=== PATIENT | female | born 1985 | race Caucasian/White ===

== ENCOUNTER 2025-04-15 12:08 | Emergency (ER) | payer OTHER, SELFPAY ==
--- OUTSIDE RECORDS SUMMARY | 2025-04-15 12:11 | XMS_ITS | Clinical Summary ---
Author Organization [facility] Address [address] [place] [address] Care Team Providers Care Forming Machine Adjuster Name Role Phone Perez Bermudez MD Primary Care Provider [phone] Allergies No known active allergies Medications ondansetron (ZOFRAN) 4 MG tablet Take 1 tablet (4 mg total) by mouth every 8 (eight) hours as needed for Nausea. 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 Gender Identity Not on file Sexual Orientation Not on file Last Filed Vital Signs Vital Sign Reading Time Taken Comments Blood Pressure 121/75 12/01/2024 12:30 AM CDT Pulse 94 12/01/2024 12:30 AM CDT Temperature 36.2 C (97.1 F) 12/01/2024 12:30 AM CDT Respiratory Rate 16 12/01/2024 12:30 AM CDT Oxygen Saturation 98% 12/01/2024 12:30 AM CDT Inhaled Oxygen Concentration - - Weight 95.3 kg (210 lb) 11/30/2024 8:28 PM CDT Height 172.7 cm (5' 8) 11/30/2024 8:28 PM CDT Body Mass Index 31.93 11/30/2024 8:28 PM CDT Plan of Treatment Health Maintenance Due Date Last Done Comments Cervical Cancer Screening Pa p Smear (Age 30 to 64) Every 3 Years 1984 Annual Physical 02/06/1987 Hepatitis C 02/06/2002 DTaP, Tdap and Td Vaccines ( 1 - Tdap) 02/06/2003 Hepatitis B Vaccines (1 of 3 - 19+ 3-dose series) 02/06/2003 HPV Vaccines (1 - 3-dose SCD M series) 02/06/2011 Cervical Cancer Screening Pa p with HPV Testing (Age 30 to 64) Every 5 Years 02/06/2014 Cervical Cancer Screening wi th HPV 02/06/2014 Mammogram Screening 2024 COVID-19 Vaccine (3 - 2023-2 5 season) 2024 12/06/2020, 11/15/2020 Meningococcal B Vaccine Aged Out No l onger eligible based on patient's age to complete this topic Meningococcal Vaccine Aged Out No buster ying eligible based on patient's age to complete this topic Pneumococcal Vaccine: Pediatrics (0 to 5 Years) and At-Risk Patients (6 to 49 Years) Aged Out No longer eligible b ased on patient's age to complete this topic RSV Immunizations Under 20 Months Aged Out No longer eligible b ased on patient's age to complete this topic Insurance [employer] Care Teams Forming Machine Adjuster Relationship Specialty Start Date End Date Perez Bermudez MD [address] [place] [address] PCP - General FAMILY PRACTICE 09/25/20
[2025-04-15 12:17] VITALS: PULSE 92; RESP 18; TEMP 36.8; O2SAT 100
--- NOTE | 2025-04-15 12:31 | ED.URI ---
HPI - URI/Sore Throat General Chief Complaint: Upper Respiratory Infection Stated Complaint: sore throat Time Seen by Provider: 04/15/25 12:31 Source: patient Mode of arrival: ambulatory Limitations: no limitations History of Present Illness HPI Narrative: 40-year-old female presents with complaint of congestion, sore throat, postnasal drainage, bilateral ear pressure for the past 4-5 days. Sore throat initially hurt in the morning and in the evenings but now is constant. Recently home from [facility]. Patient leaving in 2 days to go to [place]. Does not want to be sick when she goes as her mother is immunocompromised. Reports history of recurrent tonsillitis. All systems reviewed and negative except as noted above. Related Data Home Medications ?Medication ?Instructions ?Recorded ?Confirmed ?Last Taken ?Type levonorgestrel (Mirena) 1 device intrauterine ONCE 06/08/23 12/30/24 Unknown History Allergies Allergy/AdvReac Type Severity Reaction Status Date / Time poison oak extract Allergy Mild RASH Verified 04/15/25 12:17 No Known Drug Allergies Allergy Unknown Unknown Verified 04/15/25 12:17 [facility] Past Medical History Medical History Anxiety and depression Vaginal discharge Encounter for insertion of mirena IUD Sexually transmissible disease Encounter for IUD removal 01/02/16 Mirena removal Encounter for IUD insertion 06/28/14 Mirena insertion Depression Abnormal Pap smear of cervix (~2003) 2004 - CX DYSPLASIA Avulsion fracture of distal fibula Wellness examination Pruritus Low back pain Memory difficulties Wellness examination Insomnia Cyst of hand Obesity (BMI 30.0-34.9) Surgical History Surgical History H/O gynecological procedure mirena IUD insertion 01/2023 H/O LEEP (~2003) History of carpal tunnel release (06/17/16) both hands History of cholecystectomy (~2008) Family History Family History Father Hypertension Mother Breast cancer Carcinosarcoma of body of uterus Social History Social History Smoking status: Never smoker Second hand tobacco smoke exposure: No Alcohol intake: current Alcohol use details: 5 per month Substance use: never Substance use type: does not use Living arrangements: other Additional living arrangements comments: Occupation/Education: occupation 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 There is no relevant family history pertinent to the presenting complaint. Exam Narrative: GENERAL: This is a well-nourished, well-developed patient, in no apparent distress. HEAD: normocephalic, atraumatic. EYES: PERRL. Sclera clear/white. Vision is grossly intact. EARS: External ears normal, auditory canals clear and without drainage, Fluid with mild erythema and bulging to left TM. Right TM is normal. No perforation bilaterally. Hearing grossly intact. NOSE: External nose normal with Clear nasal drainage with erythema to nares. THROAT: Mucous membranes moist, Mild erythema postnasal drainage. No swelling or exudates. NECK: Neck supple, non-tender without lymphadenopathy, masses or thyromegaly. CARDIOVASCULAR: Regular rate and rhythm without murmurs, gallops, or rubs. RESPIRATORY: Clear to auscultation. Breath sounds equal bilaterally. No wheezes, rales, or rhonchi. SKIN: warm, Dry, intact with no suspicious lesions or rash, good texture and turgor. NEURO: awake, alert, and oriented to person, place and time. There were no obvious focal neurologic abnormalities. EXTREMITIES: No joint tenderness, effusion, or edema noted. Course Course Level of Care: Express Care Visit Vital Signs Vital signs: Vital Signs Temperature 36.8 C 04/15/25 12:17 Pulse Rate 92 04/15/25 12:17 Respiratory Rate 18 04/15/25 12:17 Pulse Oximetry 100 04/15/25 12:17 Oxygen Delivery Room Air 04/15/25 12:17 Temperature 36.8 C 04/15/25 12:17 Pulse Rate 92 04/15/25 12:17 Respiratory Rate 18 04/15/25 12:17 Pulse Oximetry 100 04/15/25 12:17 Oxygen Delivery Room Air 04/15/25 12:17 Reviewed MDM - URI/Sore Throat MDM Narrative Medical decision making narrative: strep test negative. Strep culture ordered. Will treat patient with amoxicillin for left serous otitis. Patient agrees with plan of care. Discharge Plan Discharge Clinical Impression: Acute serous otitis media of left ear, Acute sinusitis Patient Disposition: Home Condition: Stable Instructions: Antibiotic Form, Fluid In The Ear (Serous Otitis Media) (ED) Additional Instructions: Your strep test was negative today. take antibiotic as prescribed until gone. Purchase [id number] Zyrtec D and take as directed on packaging. This medication is found by the pharmacy counter. Drink at least 64 oz water a day. See your doctor if symptoms are not improving. Patient Language: Syriac Prescriptions: New amoxicillin 875 mg tablet 875 mg PO Q12H 10 Days Qty: 20 0RF No Action Mirena 21 mcg/24 hours (8 yrs) 52 mg intrauterine device 1 device intrauterine ONCE Rx Instructions: as a single dose sertraline 50 mg tablet See Rx Instructions .ROUTE .COMPLEX Qty: 90 3RF Dose Instruction: TAKE 1 TABLET BY MOUTH EVERY DAY Rx Instructions: TAKE 1 TABLET BY MOUTH EVERY DAY buspirone 5 mg tablet 5 mg PO DAILY Qty: 180 3RF Follow-up/Referrals: Perez Bermudez MD [Primary Care Provider] - Time of Disposition: 12:37
[2025-04-15 12:36] LABS: EDSTREPNEGPOS1 Negative (Negative)
[2025-04-15 12:42] VITALS: BP 110/66
== END 2025-04-15 12:42 | disposition home or self-care (01) ==
PROVIDERS: Emergency Provider Nurse Practitioner Family; PCP Family Medicine
DX: H65.02 Acute serous otitis media, left ear (principal); J01.90 Acute sinusitis, unspecified; E66.9 Obesity, unspecified; Z68.28 Body mass index [BMI] 28.0-28.9, adult; F41.9 Anxiety disorder, unspecified; F32.A Depression, unspecified; Z97.5 Presence of (intrauterine) contraceptive device
CPT/HCPCS: 87081; 87880; 99213; G0463